=== PATIENT | female | born 1945 | race Caucasian/White ===

== ENCOUNTER 2017-12-25 20:22 | Emergency (ER) | payer OTHER, MEDICARE ==
[~2017-12-25] VITALS: Ht 157.5 cm; Wt 95.3 kg
[2017-12-25 20:52] VITALS: BP 166/75
--- NOTE | 2017-12-25 22:33 | ED HAND/WRIST INJURY COMPLAINT ---
History of Present Illness General Chief Complaint: Laceration Procedure Stated Complaint: LAC TO LEFT HAND Source: patient Exam Limitations: no limitations Vital Signs & Intake/Output Vital Signs & Intake/Output Vital Signs Date Time Temp Pulse Resp B/P B/P Pulse O2 O2 Flow FiO2 Mean Ox Delivery Rate 12/26 2051 97.3 53 18 166/75 98 Room Air ED Intake and Output 12/26 0000 12/25 1200 Intake Total Output Total Balance Patient 210 lb Weight Allergies Coded Allergies: MDX - Tetracycline (TETRACYCLINE) ([facility] 11/17/12) Triage Note: 72F CAUGHT HERSELF USING LEFT HAND AND CUT SIDE OF PALM ON THE METAL. NOT UTD ON TETANUS. INJURY OCCURRED AN HOUR AGO. BANDAID IN PLACE ON ARRIVAL, BLEEDING CONTROLLED Triage Nurses Notes Reviewed? yes Occurred: just prior to arrival Duration: hour(s): Timing: single episode today Injury Environment: home Severity: mild Pain/Injury Location: Left: Hand. Context: laceration HPI: 72-year-old female presents emergency department complaining of laceration to left hand sustained at home prior to arrival. Patient states that she was in the garage when she has recently cut her hand on metal material next to the door. Bleeding was controlled at home prior to arrival. Patient is unsure of when her last tetanus vaccine was. (Kristal Sosa) Past History Travel History Traveled to [place] past 21 day No Medical History Any Pertinent Medical History? see below for history Cardiovascular: hypertension Influenza Vaccine: 04/16/10 Tetanus Vaccine: 12/25/17 Surgical History Surgical History: non-contributory Psychosocial History Who do you live with Daughter What is your primary language Polish Tobacco Use: Refused to answer Family History Hx Contributory? No (Kristal Sosa) Review of Systems Review of Systems Constitutional: Reports: no symptoms. EENTM: Reports: no symptoms. Respiratory: Reports: no symptoms. Cardiovascular: Reports: no symptoms. GI: Reports: no symptoms. Genitourinary: Reports: no symptoms. Musculoskeletal: Reports: no symptoms. Skin: Reports: see HPI. Neurological/Psychological: Reports: no symptoms. Hematologic/Endocrine: Reports: no symptoms. Immunologic/Allergic: Reports: no symptoms. All Other Systems: Reviewed and Negative (Kristal Sosa) Physical Exam Physical Exam General Appearance: well developed/nourished, no apparent distress, alert, awake Head: atraumatic, normal appearance Eyes: Bilateral: normal appearance. Ears, Nose, Throat: hearing grossly normal Neck: normal inspection, supple, full range of motion Cardiovascular/Respiratory: no respiratory distress Back: normal inspection, normal range of motion Wrist Left: normal range of motion, normal inspection Wrist Right: normal range of motion, normal inspection Hand Left: One centimeter irregular laceration to medial aspect of the palmar hand Hand Right: normal inspection, normal range of motion Neurologic/Tendon: normal sensation, normal motor functions, normal tendon functions Skin: laceration as mentioned above (Kristal Sosa) Progress Differential Diagnosis: contusion, laceration, tendon injury, foreign body Plan of Care: Current Medications Sig/Conrad Start time Last Medication Dose Stop Time Status Admin Tetanus/Diphtheria 0.5 ML ONCE ONE 12/25 2229 UNVr 12/25 Toxoids Adsorbed 12/25 (Decavac) Laceration closed using sutures, patient tolerated procedure well. Tetanus status updated today. Patient educated on signs and symptoms of skin infection. No evidence of foreign body present in wound following irrigation. Patient will return for suture removal. She agrees with the plan of care. (Kristal Sosa) Departure Departure Disposition: HOME OR SELF CARE Condition: Stable Clinical Impression Primary Impression: Hand laceration Qualifiers: Encounter type: initial encounter Foreign body presence: without foreign body Laterality: left Qualified Code: S61.412A - Laceration without foreign body of left hand, initial encounter Referrals: Darren Saldaña MD (PCP/Family) Additional Instructions: Return in 7-10 days for removal of stitches. Monitor for signs of skin infection such as redness, swelling, increasing pain. With any of these symptoms please return sooner. Please note that there might be incidental findings in your evaluation that are unrelated to the current emergency department visit. Please notify your primary care doctor about this emergency department visit in order to obtain and review all of the testing performed so that these incidental findings can be monitored as needed. If you had an x-ray performed, please understand that some fractures may not be seen on the initial set of x-rays. If your symptoms persist you might need a repeat set of x-rays to check for such a fracture. If you had a laceration evaluated, please understand that foreign bodies such as glass or wood may not be visible to the naked eye or on plain x-rays. If the wound becomes red, swollen, increasingly more painful or if there is any drainage from the wound, please have it reevaluated by a physician for the possibility of a retained foreign body. If you're unable to follow up as outlined in the discharge instructions please return to the emergency department. Thank you for choosing the [facility] Emergency Department for your care. It was a pleasure to serve you today. Departure Forms: Customer Survey General Discharge Information (Judy AMAYA,Kristal Mello) PA/SENIOR MECHANICAL DESIGNER Co-Sign Statement Statement: ED Attending supervision documentation- [x] I have reviewed the ED Record and agree with the PA's/SENIOR MECHANICAL DESIGNER's documentation. (Freddie ECHOLS,Grant Lim) Procedures Laceration/Wound Repair Laceration/Wound Repair: Wound Location: left hand Wound's Depth, Shape: irregular Wound Length (cm): 1 Wound Explored: irrigated extensively Irrigated w/ Saline (ccs): 300 Betadine Prep? Yes Anesthesia: 1% lidocaine Volume Anesthetic (ccs): 3 Wound Repaired With: sutures Suture Size/Type: 4:0, nylon Number of Sutures: 3 Layer Closure? No Sterile Dressing Applied: Yes Date of Last Tetanus: 12/25/17 Tetanus Status: up to date Progress: Patient tolerated procedure well. (Judy AMAYA,Kristal Mello)
== END 2017-12-25 22:43 ==
LOC: ERH 20:22
DX: S61.412A Laceration without foreign body of left hand, initial encounter (principal); W45.8XXA Other foreign body or object entering through skin, initial encounter; Y92.009 Unspecified place in unspecified non-institutional (private) residence as the place of occurrence of the external cause
CPT/HCPCS: 90471; 90714; J2001

== ENCOUNTER 2018-01-03 09:20 | Emergency (ER) | payer OTHER, MEDICARE ==
[~2018-01-03] VITALS: Ht 157.5 cm; Wt 95.3 kg
[2018-01-03 09:48] VITALS: BP 150/76
--- NOTE | 2018-01-03 09:51 | ED ANIMAL BITE/WOUND CHECK ---
History of Present Illness General Chief Complaint: Suture Removal/Wound Recheck Stated Complaint: HAND SUTURE REMOVAL Source: patient Exam Limitations: no limitations Vital Signs & Intake/Output Vital Signs & Intake/Output ED Intake and Output 01/04 0000 01/03 1200 Intake Total Output Total Balance Patient 210 lb Weight Weight Reported by Patient Measurement Method Allergies Coded Allergies: MDX - Tetracycline (TETRACYCLINE) ([facility] 11/17/12) Triage Note: PT TO ED WITH C/O LEFT HAND SUTURE REMOVAL. ОЛЕГ Escudero IN TRIAGE FOR SUTURE REMOVAL AT THIS TIME. Triage Nurses Notes Reviewed? yes Onset: Abrupt Duration: week(s):, constant, continues in ED Timing: single episode today Injury Environment: home Is Injury an Animal Bite? No No Modifying Factors: none LMP (ages 10-50): unknown : No Patient currently breastfeeds: No HPI: 72-year-old female presents for suture removal. She was seen over a week ago for a laceration to her left hand. She's been keep area clean and dry denies any redness swelling discharge or pain no fever. (Олег Holman) Past History Medical History Any Pertinent Medical History? see below for history Cardiovascular: hypertension Tetanus Vaccine: 12/25/17 Surgical History Surgical History: non-contributory Psychosocial History Who do you live with Daughter What is your primary language Qatari Family History Hx Contributory? No (Олег Holman) Review of Systems Review of Systems Constitutional: Reports: no symptoms. EENTM: Reports: no symptoms. Respiratory: Reports: no symptoms. Cardiovascular: Reports: no symptoms. GI: Reports: no symptoms. Genitourinary: Reports: no symptoms. Musculoskeletal: Reports: no symptoms. Skin: Reports: see HPI (laceration ). Neurological/Psychological: Reports: no symptoms. Hematologic/Endocrine: Reports: no symptoms. Immunologic/Allergic: Reports: no symptoms. All Other Systems: Reviewed and Negative (Олег Holman) Physical Exam Physical Exam General Appearance: well developed/nourished, no apparent distress, alert, awake Head: atraumatic, normal appearance Eyes: Bilateral: normal appearance, EOMI. Ears, Nose, Throat: hearing grossly normal Neck: normal inspection, supple, full range of motion Respiratory: no respiratory distress Peripheral Pulses: 2+ radial (R), 2+ radial (L) Back: normal inspection, normal range of motion Extremities: normal range of motion Neurologic/Psych: no motor/sensory deficits, awake, alert, oriented x 3, normal gait, normal mood/affect Skin: intact, normal color, warm/dry, there is a 1.5 cm linear well-healed laceration on the palm the left hand. There is no underlying erythema discharge swelling. Sutures are intact. Range of motion and intact neurovascular supply to (Олег Holman) Progress Differential Diagnosis: abscess, cellulitis, joint infection, tenosysnovitis Plan of Care: Patient is here for suture removal. The laceration appears well-healed. Sutures were removed without difficulty patient tolerated well. Discussed wound care procedures discussed return precautions patient agrees the plan case discussed with Dr. Fiugeroa agrees (Олег Holman) Departure Departure Disposition: HOME OR SELF CARE Condition: Stable Clinical Impression Primary Impression: Visit for suture removal Referrals: Darren Saldaña MD (PCP/Family) Additional Instructions: Keep area clean and dry. Look out for signs of infection like redness swelling discharge or pain. Tylenol for pain medication follow-up with your doctor for recheck in a few days return with any concerns. Departure Forms: Customer Survey General Discharge Information (Олег Holman) PA/DRIVE IN THEATER ATTENDANT Co-Sign Statement Statement: ED Attending supervision documentation- [] I saw and evaluated the patient. I have also reviewed all the pertinent lab results and diagnostic results. I agree with the findings and the plan of care as documented in the PA's/DRIVE IN THEATER ATTENDANT's documentation. [X] I have reviewed the ED Record and agree with the PA's/DRIVE IN THEATER ATTENDANT's documentation. [] Additions or exceptions (if any) to the PAs/DRIVE IN THEATER ATTENDANT's note and plan are summarized below: [] (Anatoly Figueroa DO
== END 2018-01-03 09:58 ==
LOC: ERH 09:20
DX: Z48.02 Encounter for removal of sutures (principal)